=== PATIENT | male | born 1960 ===

== ENCOUNTER 2018-02-21 17:39 | Emergency (ER) | payer OTHER ==
[~2018-02-21] VITALS: Ht 172.7 cm; Wt 87.5 kg
== END 2018-02-21 19:24 | disposition home or self-care (01) ==
LOC: ER 17:39
DX: S60.012A Contusion of left thumb without damage to nail, initial encounter (principal); W22.8XXA Striking against or struck by other objects, initial encounter; Y93.89 Activity, other specified; Y92.89 Other specified places as the place of occurrence of the external cause; Y99.8 Other external cause status